=== PATIENT | female | born 1940 ===

== ENCOUNTER → 2016-09-11 | Outpatient (CLI) | payer MEDICARE, OTHER ==
--- NOTE | ~2016-09-11 | PUL ---
PATIENT'S NAME: TIMOTHY JAVIER [facility] AGE: 76 Y [address] ROOM: [place] [id number] LOCATION: [facility] ADMIT DATE: 09/11/2016 Pulmonary DISCHARGE DATE: FAMILY PHYSICIAN: Leno Gordon MD ATTENDING PHYSICIAN: Leno Gordon NAME OF PROCEDURE: Sleep study DATE OF PROCEDURE: 09/11/16 TECH: CHRISS Peña TEST #: [facility]# [id number] MEDICAL HISTORY: The patient is a 76-year-old woman with hypersomnolence. She has a prior history of positive sleep study. SLEEP STAGE SUMMARY: The patient was studied for 508 minutes of which she slept 301 minutes. She fell asleep in 20 minutes and slept for 60% of the night. Sleep architecture revealed a decline in slow wave and REM sleep. RESPIRATORY SUMMARY: Oxygen saturations ranged from 56%-89%. Prior to initiating CPAP there were 24 apneas and 116 hypopneas for an apnea/hypopnea index severely elevated at 55 events per hour. CPAP was initiated and titrated to 14 cm with good control of the respiratory events. EKG SUMMARY: No dysrhythmias were noted. LIMB MOVEMENT SUMMARY: Occasional periodic limb movements were noted. These are probably not clinically relevant. SUMMARY: Severe obstructive sleep apnea responsive to CPAP at 14 cm. PLAN: Suggest CPAP at 14 cm. Patient will receive results from the ordering provider. JOMAR ARRINGTON MD [facility]/ /[id number] dtt: 09/20/16 1303 Michael David E. dtd: 09/13/16 1127
== END | disposition disaster alternative care site (69) ==
LOC: GSLP 20:29
DX: G47.33 Obstructive sleep apnea (adult) (pediatric) (principal); G47.10 Hypersomnia, unspecified